=== PATIENT | male | born 1995 | race Caucasian/White ===

== ENCOUNTER → 2025-02-15 07:27 | Outpatient (BNVA) | payer SELFPAY | PROVIDERS: Visit Provider Internal Medicine ==

== ENCOUNTER 2025-07-12 16:04 | Outpatient (AMB) | payer OTHER, SELFPAY ==
--- NOTE | 2025-07-12 16:06 | MHC.OFFWIV ---
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 - The rash is itchy, marques, and becomes painful to touch as it progresses. - The patient reports a similar episode of rash a year ago while in [place], which resolved after a month with treatment. - The rash is characterized by red dots and bumps, which are skin-colored on the palms and red on the arms. - Previous treatment included prednisone and anti-itch cream, which provided relief over a month. - The patient is currently in the [employer] and has not experienced any fever or systemic symptoms. Physical Exam General: Cooperative, healthy appearing, comfortable, no acute distress and well developed Orientation: Patient oriented x3 Limitations: No limitations Head: Normal to inspection Ears: Hearing grossly normal bilaterally Nose: Normal External nose present Face and sinus: Normal facial exam Eyes: Appearance normal, both eyes and all related structures Neck: Normal visual inspection and Yes full ROM Respiratory: Normal respiratory effort and able to speak in complete sentences. Skin: small flesh colored bumps on the palms of the hands, these bumps turn erythematous as it hits the arms and go all the way up the arms, a little bit on the belly, behind the knees, and a little bit up on the thigh. Neuro: Patient oriented x3 Review of Systems Const All systems reviewed & are unremarkable except as noted in HPI and below Physical Exam Vital Signs: Last Vital Signs Temp 98.0 F 07/12/25 16:07 Pulse 71 07/12/25 16:07 BP 114/60 07/12/25 16:07 Pulse Ox 97 07/12/25 16:07 Oxygen Delivery Method Room Air 07/12/25 16:07 BMI result Body Mass Index 25.4 Assessment & Plan Assessment & Plan (1) Dyshidrotic eczema: Code(s): L30.1 - Dyshidrosis [pompholyx] Plan: Patient was informed and verbally consented to the use of an ambient scribe for clinic note documentation during this visit. Dyshidrotic Eczema - The patient will be prescribed a prednisone taper starting at 40 mg for three days, reducing by 10 mg every three days until completion, for 12 days. - Triamcinolone cream will be provided for topical application twice daily for up to two weeks for symptomatic relief. - The patient is advised to follow up with a non destructive testing engineer for further evaluation and confirmation of the diagnosis. Medications: New prednisone see taper instructions; 40 mg Daily x3 days, 30 mg daily x3 days, 20 mg daily x3 days, 10 mg daily x3 days 10 mg PO DIRECTED 30 tabs 0RF triamcinolone acetonide 0.5% do not exceed use greater than 14 days 1 appl topical BID 15 grams 0RF Coding Level of Care Code New Pt Level 3 (91392) Diagnoses Dyshidrotic eczema L30.1
[2025-07-12 16:07] VITALS: BP 114/60; PULSE 71; TEMP 36.7; O2SAT 97; BMI 25.4
--- OUTSIDE RECORDS SUMMARY | 2025-07-12 17:48 | XMS_ITS | Continuity of Care Document ---
Author Name [facility] Organization [facility] Care Team Providers Care Unit Technician Name Role Phone [facility] Unavailable Unavailable Problems Combined list of problems from Department of Defense and Veterans Affairs facilities. It does not include entries that were removed or entered in error. Problem Status Onset Date Problem Type Date of Resolution Comments Source EXAM, OCCUPATIONAL, GROUP HOME OR SEPARATION FROM LinQMartED SERVICE, LONG Active 10/21/20 Diagnosis 0108A-JAY hodge Encounter for screening examination for other mental health and behavioral disorders Active 10/20/20 Diagnosis 0108A-JAY hodge Anger Active Condition [facility] Decreased sexual function Active Condition [facility] Exposure to potentially hazardous substance ([facility] [id number]) Active Condition Dec 05, 2024 Entered By: SHARONDA DOVE Comment: Entered automatically through DERIC Problem List documentation program [facility] History of deployment Active Condition [facility] visit for: services physical accession Active Condition DoD Need For Vaccination Against Influenza Inactive Condition DoD Need For Vaccination Against Viral Diseases Inactive Condition DoD visit for: services physical Active Condition DoD Diagnosis: ICD-10-CM F41.9 Anxiety disorder, unspecified Active Diagnosis [facility] Diagnosis: ICD-10-CM Z56.0 Unemployment, unspecified Active Diagnosis [facility] Diagnosis: ICD-10-CM R37 Sexual dysfunction, unspecified Active Diagnosis [facility] Medications Combined list of outpatient medications from Department of Defense and Veterans Affairs facilities.Medications provided include 1) outpatient medications from the last 15 months, and 2) patient-reported medications. Medication Details Route Status Patient Instructions Prescription Expires Prescription Number Last Dispense Date Ordering Provider Order Date Order Qty Source No Known Medications No Known Medicati ons complet ed 0108A-A [facility] Nahun Malave PSYLLIUM PWDR,ORAL TAKE 2 TEASPOON FULS BY MOUTH ONCE DAILY FOR CONSTIPA TION (MIX WITH AT LEAST 8OZ. OF WATER OR OTHER FLUID) ORAL ACTIVE 12/01/2025 [id number] NAHUN WILKERSON 2024 390 [facility] Allergies, Adverse Reactions, Alerts Combined list of allergies from Department of Defense and Veterans Affairs facilities. It does not include entries that were removed or entered in error. Substance Category Reaction Severity Reaction type Status Date Reported Comments Source No Known Allergies Drug allergy (disorder) active 05/30/2014 Kvng MCDONOUGH[place] Immunizations Combined list of available immunizations from the Department of Defense and Veterans Affairs facilities. Immunization Series Date Given Administered By Site Reaction Lot Number CVX Code Drug Insurance Territory Manager Status Comments Source tetanus, diphtheria, acellular pertu is 2023 LEONOR Shoul kevin, left (delt oid) [id number] GlaxDreamFace InteractiveKli ak complet ed tetanus, diphtheri a, acellular pertussis 10/20/24 Given 0108A-A Nahun Malave INFLUENZA, UNSPECIFIED FORMULATION 2023 88 complet ed HISTORICA L INFORMATI ON - FROM PATIENT'S RECALL, per statement from vet [facility] anthrax vaccine 2023 MAYTELUNA-CAM POS Shoul kevin, right (delt oid) [id number] Kuapay. complet ed anthrax vaccine 12/09/23 Given 0108A-A Nahun Malave typhoid Vi capsular polysaccharid e vac 2023 [id number] OTI [employer]ent[employer] complet ed typhoid Vi capsular polysacch aride vac 11/13/23 Given Ambulat ory Pharmac y Influenza, trivlanent, adjuvanted, pf 2022 [id number] Seqirus complet ed Influenza , trivlanen t, adjuvante d, pf 10/12/23 Given Ambulat ory Pharmac y influenza, injectable, quadrivalent- pf 2021 [id number] ID Biomedical comple t ed influenza , injectabl e, quadrival ent-pf 08/23/22 Given Ambulat ory Pharmac y COVID Vaccine Pfizer 2020 208 PFIZER complet ed COVID Vaccine Pfizer 05/26/21 Given Ambulat ory Pharmac y COVID-19, mRNA, LNP-S, PF, 30 mcg/0.3 mL dose 2020 MURPHY, [facility] (PFR) Not Given COVID-19, mRNA, LNP-S, PF, 30 mcg/0.3 mL dose DoD COVID Vaccine Pfizer 2020 208 PFIZER complet ed COVID Vaccine Pfizer 05/04/21 Given Ambulat ory Pharmac y COVID-19, mRNA, LNP-S, PF, 30 mcg/0.3 mL dose 2020 FRANKEL, [facility] (PFR) Not Given COVID-19, mRNA, LNP-S, PF, 30 mcg/0.3 mL dose DoD influenza, injectable, quadrivalent- pf 2018 [id number] Seqirus complet ed influenza , injectabl e, quadrival ent-pf 09/24/19 Given Ambulat ory Pharmac y INFLUENZA, SEASONAL, INJECTABLE 2018 141 complet ed Drill weekend [facility] influenza, injectable, quadrivalent- pf 2017 [id number] 150 Unknown complet ed influenza , injectabl e, quadrival ent-pf 08/28/18 Given Ambulat ory Pharmac y INFLUENZA, SEASONAL, INJECTABLE 2016 141 complet ed [facility] influenza, injectable, quadrivalent- pf 2016 [id number] 150 Seqirus complet ed influenza , injectabl e, quadrival ent-pf 09/06/17 Given Ambulat ory Pharmac y Influenza, injectable, quadrivalent, preservative free 1 2016 [id number] 150 Seqirus (SEQ) comple t ed Influenza , injectabl e, quadrival ent, preservat will free DoD typhoid Vi capsular polysaccharid e vac 2016 [id number] 101 sanofi pasteur complet ed typhoid Vi capsular polysacch aride vac 02/03/17 Given Ambulat ory Pharmac y anthrax vaccine 2016 [id number] 24 Emergent Biosolutions complet ed anthrax vaccine 02/03/17 Given Ambulat ory Pharmac y anthrax vaccine 1 2016 [id number] 24 Emergent BioDefense Operations Humphrey ([facility]) complet ed anthrax vaccine DoD typhoid Vi capsular polysaccharid e vaccine 1 2016 [id number] 101 Sanofi Pasteur (PMC) complet ed typhoid Vi capsular polysacch aride vaccine DoD hepatitis A adult vaccine 2016 [id number] 52 Unknown complet ed hepatitis A adult vaccine 11/14/16 Given Ambulat ory Pharmac y hepatitis A vaccine, adult dosage 3 2016 [id number] 52 Other (OTH) complet ed hepatitis A vaccine, adult dosage DoD influenza, seasonal, injectable-pf 2015 [id number] 140 Unknown complet ed influenza , seasonal, injectabl e-pf 08/29/16 Given Ambulat ory Pharmac y Influenza, seasonal, injectable, preservative free 1 2015 [id number] 140 Other (OTH) complet ed Influenza , seasonal, injectabl e, preservat will free DoD hepatitis A adult vaccine 2015 [id number] 52 GlaxoSmithKli ne complet ed hepatitis A adult vaccine 04/12/16 Given Ambulat ory Pharmac y hepatitis A vaccine, adult dosage 2 2015 [id number] ffk environment (SKB) complet ed hepatitis A vaccine, adult dosage DoD varicella virus vaccine 2015 [id number] 21 Merck & Company Inc complet ed varicella virus vaccine 01/08/16 Given Ambulat ory Pharmac y varicella virus vaccine 2 2015 [id number] 21 Merck (MSD) complet ed varicella virus vaccine DoD hepatitis B vaccine, adult dosage 1 2015 UNK 43 Unknown (UNK) Not Given hepatitis B vaccine, adult dosage DoD influenza, seasonal, injectable-pf 2014 [id number] 140 Unknown complet ed influenza , seasonal, injectabl e-pf 10/21/15 Given Ambulat ory Pharmac y Influenza, seasonal, injectable, preservative free 1 2014 [id number] 140 Other (OTH) complet ed Influenza , seasonal, injectabl e, preservat will free DoD hepatitis A-hepatitis B vaccine 2013 [id number] 104 GlaxoSmithKli ne complet ed hepatitis A-hepatit is B vaccine 04/28/14 Given Ambulat ory Pharmac y adenovirus vaccine, live 2013 [id number] 143 Teva Pharmaceutica complet ed adenoviru s vaccine, live 04/28/14 Given Ambulat ory Pharmac y varicella virus vaccine 2013 [id number] 21 Merck & Company Inc complet ed varicella virus vaccine 04/28/14 Given Ambulat ory Pharmac y influenza, seasonal, injectable-pf 2013 [id number] 140 CSL Behring complet ed influenza , seasonal, injectabl e-pf 04/28/14 Given Ambulat ory Pharmac y measles, mumps and rubella virus vaccine 1 2013 UNK 03 Unknown (UNK) Not Given measles, mumps and rubella virus vaccine DoD varicella virus vaccine 1 2013 [id number] 21 Merck (MSD) complet ed varicella virus vaccine DoD hepatitis A and hepatitis B vaccine 1 2013 [id number] [facility] ffk environment (SKB) complet ed hepatitis A and hepatitis B vaccine DoD Influenza, seasonal, injectable, preservative free 1 2013 [id number] 140 CSL Biotherapies[employer] Inc. (CSL) complet ed Influenza , seasonal, injectabl e, preservat will free DoD Adenovirus, type 4 and type 7, live, oral 1 2013 [id number] 143 [facility] ([facility]) complet ed Adenoviru s, type 4 and type 7, live, oral DoD tetanus, diphtheria, acellular pertu is 2013 [id number] 115 sanofi pasteur complet ed tetanus, diphtheri a, acellular pertussis 04/26/14 Given Ambulat ory Pharmac y poliovirus vaccine, inactivated 2013 [id number] 10 sanofi pasteur complet ed polioviru s vaccine, inactivat ed 04/26/14 Given Ambulat ory Pharmac y meningococcal A,C,Y,W-135 (MCV4P) 2013 [id number] 114 GlaxDreamFace InteractiveKli ak complet ed meningoco ccal A,C,Y,W-1 35 (MCV4P) 04/26/14 Given Ambulat ory Pharmac y poliovirus vaccine, inactivated 1 2013 [id number] 10 Sanofi Pasteur (PMC) complet ed polioviru s vaccine, inactivat ed DoD meningococcal polysaccharid e (groups A, C, Y and W-135) diphtheria toxoid conjugate vaccine (MCV4P) 1 2013 [id number] 114 SmithKline (SKB) complet ed meningoco ccal polysacch aride (groups A, C, Y and W-135) diphtheri a toxoid conjugate vaccine (MCV4P) DoD tetanus toxoid, reduced diphtheria toxoid, and acellular pertu is vaccine, adsorbed 1 2013 [id number] 115 Sanofi Pasteur (PMC) complet ed tetanus toxoid, reduced diphtheri a toxoid, and acellular pertussis vaccine, adsorbed DoD Results Combined list of recent chemistry, hematology and other laboratory results from Department of Defense and Veterans Affairs, ranging from 15 months to all on record, depending upon the facility. Order Name Results Value Reference Range Date Interpretation Specimen Comments Source HEPATITI S B SURFACE ANTIBODY (HBsAb)- HEPATITIS B VIRUS SURFACE AB [PRESENCE] IN SERUM BY IMMUNOASSA Y Non Reactive 01/25 Specimen Type: SERUM No comment entered. Ordering Provider: LAUREL WILKERSON Report Released Date/Time: Nov 21, 2024 01:05 PM Reporting Lab: [facility] [address] [facility] [facility] [address] Performing Lab: [address] [address] [facility] CBC LEUKOCYTES [#/VOLUME] IN BLOOD BY AUTOMATED COUNT 5.74 10*3/uL 4.50 - 11.00 01/25 Specimen Type: BLOOD No comment entered. Ordering Provider: LAUREL WILKERSON Report Released Date/Time: Nov 21, 2024 01:05 PM Reporting Lab: [facility] [address] [facility] [facility] [address] Performing Lab: [facility] [address] [facility] [facility] [address] [facility] CBC ERYTHROCYT ES [#/VOLUME] IN BLOOD BY AUTOMATED COUNT 5.51 10*6/uL 4.23 - 5.66 01/25 Specimen Type: BLOOD No comment entered. Ordering Provider: LAUREL WILKERSON Report Released Date/Time: Nov 21, 2024 01:05 PM Reporting Lab: [facility] [address] [facility] [facility] [address] Performing Lab: [facility] [address] [facility] [facility] [address] [facility] CBC HEMOGLOBIN [MASS/VOLU ME] IN BLOOD 16.3 g/dL 12.8 - 17 01/25 Specimen Type: BLOOD No comment entered. Ordering Provider: LAUREL WILKERSON Report Released Date/Time: Nov 21, 2024 01:05 PM Reporting Lab: [facility] [address] [facility] [address] Performing Lab: [facility] [address] [facility] [address] [facility] CBC HEMATOCRIT [VOLUME FRACTION] OF BLOOD BY AUTOMATED COUNT 46.7 39.2 - 50.4 01/25 Specimen Type: BLOOD No comment entered. Ordering Provider: LAUREL WILKERSON Report Released Date/Time: Nov 21, 2024 01:05 PM Reporting Lab: [facility] [address] [facility] [address] Performing Lab: [facility] [address] [facility] [address] [facility] CBC MCV [ENTITIC VOLUME] BY AUTOMATED COUNT 84.8 fL 82 - 99 01/25 Specimen Type: BLOOD No comment entered. Ordering Provider: LAUREL WILKERSON Report Released Date/Time: Nov 21, 2024 01:05 PM Reporting Lab: [facility] [address] [facility] [facility] [address] Performing Lab: [facility] [address] [facility] [facility] [address] [facility] CBC MCHC [MASS/VOLU ME] BY AUTOMATED COUNT 34.9 g/dL 30.8 - 35.1 01/25 Specimen Type: BLOOD No comment entered. Ordering Provider: LAUREL WILKERSON Report Released Date/Time: Nov 21, 2024 01:05 PM Reporting Lab: [facility] [address] [facility] [facility] [address] Performing Lab: [facility] [address] [facility] [facility] [address] [facility] CBC PLATELETS [#/VOLUME] IN BLOOD BY AUTOMATED COUNT 212 10*3/uL 140 - 360 01/25 Specimen Type: BLOOD No comment entered. Ordering Provider: LAUREL WILKERSON Report Released Date/Time: Nov 21, 2024 01:05 PM Reporting Lab: [facility] [address] [facility] [facility] [address] Performing Lab: [facility] [address] [facility] [address] [facility] CBC ERYTHROCYT E DISTRIBUTI ON WIDTH [RATIO] BY AUTOMATED COUNT 13.1 12.0 - 16.0 01/25 Specimen Type: BLOOD No comment entered. Ordering Provider: LAUREL WILKERSON Report Released Date/Time: Nov 21, 2024 01:05 PM Reporting Lab: [facility] [address] [facility] [address] Performing Lab: [facility] [address] [facility] [address] [facility] CBC MCH [ENTITIC MASS] BY AUTOMATED COUNT 29.6 pg 26.2 - 32.6 01/25 Specimen Type: BLOOD No comment entered. Ordering Provider: LAUREL WILKERSON Report Released Date/Time: Nov 21, 2024 01:05 PM Reporting Lab: [facility] [address] [facility] [address] Performing Lab: [facility] [address] [address] [facility] BASIC METABOLI C PANEL (non-fas ting) UREA NITROGEN [MASS/VOLU ME] IN SERUM OR PLASMA 18 mg/dL 7 - 25 01/25 Specimen Type: SERUM No comment entered. Ordering Provider: LAUREL WILKERSON Report Released Date/Time: Nov 21, 2024 01:05 PM Reporting Lab: [facility] [address] [address] Performing Lab: [facility] [address] [address] [facility] BASIC METABOLI C PANEL (non-fas ting) GLUCOSE [MASS/VOLU ME] IN SERUM OR PLASMA 84 mg/dL 65 - 100 01/25 Specimen Type: SERUM No comment entered. Ordering Provider: LAUREL WILKERSON Report Released Date/Time: Nov 21, 2024 01:05 PM Reporting Lab: [address] [address] Performing Lab: [address] [address] [facility] BASIC METABOLI C PANEL (non-fas ting) SODIUM [MOLES/VOL UME] IN SERUM OR PLASMA 138 mmol/L 135 - 145 01/25 Specimen Type: SERUM No comment entered. Ordering Provider: LAUREL WILKERSON Report Released Date/Time: Nov 21, 2024 01:05 PM Reporting Lab: [address] [address] Performing Lab: [facility] [address] [address] [facility] BASIC METABOLI C PANEL (non-fas ting) POTASSIUM [MOLES/VOL UME] IN SERUM OR PLASMA 4.3 mmol/L 3.5 - 5.0 01/25 Specimen Type: SERUM No comment entered. Ordering Provider: LAUREL WILKERSON Report Released Date/Time: Nov 21, 2024 01:05 PM Reporting Lab: [facility] [address] Performing Lab: [facility] [facility] [address] [facility] [facility] [address] [facility] WSTRN MASSUSE [facility] BASIC METABOLI C PANEL (non-fas ting) CHLORIDE [MOLES/VOL UME] IN SERUM OR PLASMA 103 mmol/L 100 - 110 01/25 Specimen Type: SERUM No comment entered. Ordering Provider: LAUREL WILKERSON Report Released Date/Time: Nov 21, 2024 01:05 PM Reporting Lab: [facility] [place] [facility] [address] [facility] [facility] [address] Performing Lab: [facility] WSTRN [facility] [address] [facility]PITALRSOU[facility]ENTERTRN [facility]ITALUSE [facility] BASIC METABOLI C PANEL (non-fas ting) CARBON DIOXIDE, TOTAL [MOLES/VOL UME] IN SERUM OR PLASMA 27 meq/L 20 - 30 01/25 Specimen Type: SERUM No comment entered. Ordering Provider: LAUREL WILKERSON Report Released Date/Time: Nov 21, 2024 01:05 PM Reporting Lab: [facility]ITALRL TRN [facility]ITALUSETS [address] [address] Performing Lab: [facility]ITALRL TRN [facility]ITALUSE[address] [address] [facility]ITALRINF[facility] WESTN [facility] BASIC METABOLI C PANEL (non-fas ting) CALCIUM [MASS/VOLU ME] IN SERUM OR PLASMA 10.4 mg/dL 8.5 - 10.2 01/25 H Specimen Type: SERUM No comment entered. Ordering Provider: LAUREL WILKERSON Report Released Date/Time: Nov 21, 2024 01:05 PM Reporting Lab: [facility] WSTRN [facility]ITALUSETS [address] [address] Performing Lab: [facility]ITALRL WSTRN [facility]ITALUSETS [address] [address] [facility]ITALRSOU[facility] CENTERTRN [facility] HOS[facility]ITALUSE [facility] BASIC METABOLI C PANEL (non-fas ting) CREATININE [MASS/VOLU ME] IN SERUM OR PLASMA 0.87 mg/dL 0.50 - 1.40 01/25 Specimen Type: SERUM No comment entered. Ordering Provider: LAUREL WILKERSON Report Released Date/Time: Nov 21, 2024 01:05 PM Reporting Lab: [facility]ITALRL TRN [facility]USE[address] [address] Performing Lab: [facility]OSPITALRL [facility]N [facility]ITALUSE[address] [address] [facility]ITALRL [facility]N [facility] HOS[facility]ITALUSE [facility] BASIC METABOLI C PANEL (non-fas ting) GLOMERULAR FILTRATION RATE/1.73 SQ M.PREDICTE D [VOLUME RATE/AREA] IN SERUM, PLASMA OR BLOOD BY CREATININE -BASED FORMULA (CKD-EPI 2020) >90mL/mi n 60 01/25 Specimen Type: SERUM No comment entered. Ordering Provider: LAUREL WILKERSON Report Released Date/Time: Nov 21, 2024 01:05 PM Reporting Lab: [facility]ITAL[facility]N [address] [address] Performing Lab: [facility]OSPITALRL [facility]ITALN [facility]ITALUSE[address] [address] [facility] LIPID PANEL, NON FASTING CHOLESTERO L [MASS/VOLU ME] IN SERUM OR PLASMA 220 mg/dL 01/25 H Specimen Type: SERUM No comment entered. Ordering Provider: LAUREL WILKERSON Report Released Date/Time: Nov 21, 2024 01:05 PM Reporting Lab: [facility]ITALRL TRN [facility]ITALUSE[address] [address] Performing Lab: [facility]ITALRL TRN [facility]ITALUSE[address] [address] [facility]ITALRINFIRMARY WESTN [facility] HOSPITALUSE [facility] LIPID PANEL, NON FASTING TRIGLYCERI DE [MASS/VOLU ME] IN SERUM OR PLASMA 142 mg/dL 0 - 150 01/25 Specimen Type: SERUM No comment entered. Ordering Provider: LAUREL WILKERSON Report Released Date/Time: Nov 21, 2024 01:05 PM Reporting Lab: [facility]ITALRSOU[facility]DW[facility] CENTERTRN [facility]ITALUSE[address] [address] Performing Lab: [facility] [place] [facility] [address] [facility] [facility] [address] [facility] [facility] LIPID PANEL, NON FASTING CHOLESTERO L IN LDL [MASS/VOLU ME] IN SERUM OR PLASMA BY CALCULALEON Beckwith 140 mg/dL 0 - 129 01/25 H Specimen Type: SERUM No comment entered. Ordering Provider: LAUREL WILKERSON Report Released Date/Time: Nov 21, 2024 01:05 PM Reporting Lab: [facility] [place] [facility] [address] [facility] [address] Performing Lab: [facility] [facility] [address] [facility] [facility] [address] [facility] LIPID PANEL, NON FASTING CHOLESTERO L.TOTAL/CH OLESTEROL IN HDL [MASS RATIO] IN SERUM OR PLASMA 4.2 01/25 Specimen Type: SERUM No comment entered. Ordering Provider: LAUREL WILKERSON Report Released Date/Time: Nov 21, 2024 01:05 PM Reporting Lab: [facility] [place] [facility] [address] [facility] [address] Performing Lab: [place] [facility] [facility] [address] [facility] [facility] [address] [facility] LIPID PANEL, NON FASTING CHOLESTERO L IN HDL [MASS/VOLU ME] IN SERUM OR PLASMA 52 mg/dL 40 - 60 01/25 Specimen Type: SERUM No comment entered. Ordering Provider: LAUREL WILKERSON Report Released Date/Time: Nov 21, 2024 01:05 PM Reporting Lab: [facility] [place] [facility] [address] [facility] [facility] [address] Performing Lab: [facility] [place] [facility] [address] [facility] [facility] [address] [facility]ITALRL WSTRN [place] [facility] LIVER FUNCTION PROTEIN [MASS/VOLU ME] IN SERUM OR PLASMA 7.8 g/dL 6.0 - 8.3 01/25 Specimen Type: SERUM No comment entered. Ordering Provider: LAUREL WILKERSON Report Released Date/Time: Nov 21, 2024 01:05 PM Reporting Lab: [facility] [address] [facility] [address] Performing Lab: [facility] [address] [facility] [address] [facility] [place] [facility] LIVER FUNCTION ALBUMIN [MASS/VOLU ME] IN SERUM OR PLASMA 4.6 g/dL 3.5 - 5.0 01/25 Specimen Type: SERUM No comment entered. Ordering Provider: LAUREL WILKERSON Report Released Date/Time: Nov 21, 2024 01:05 PM Reporting Lab: [facility] [address] [facility] [address] Performing Lab: [facility] [address] [facility] [address] [place] [facility] [place] [facility] LIVER FUNCTION ALKALINE PHOSPHATAS E [ENZYMATIC ACTIVITY/V OLUME] IN SERUM OR PLASMA 51 U/L 40 - 150 01/25 Specimen Type: SERUM No comment entered. Ordering Provider: LAUREL WILKERSON Report Released Date/Time: Nov 21, 2024 01:05 PM Reporting Lab: [facility] [address] [facility] [address] Performing Lab: [facility] [place] [facility] [address] [facility] [address] [place] [facility] [facility] LIVER FUNCTION ASPARTATE AMINOTRANS FERASE [ENZYMATIC ACTIVITY/V OLUME] IN SERUM OR PLASMA 27 U/L 5 - 34 01/25 Specimen Type: SERUM No comment entered. Ordering Provider: LAUREL WILKERSON Report Released Date/Time: Nov 21, 2024 01:05 PM Reporting Lab: [facility] [place] [facility] [address] [facility] [address] Performing Lab: [facility] [place] [facility] [address] [facility] [address] [facility] [place] [facility] LIVER FUNCTION ALANINE AMINOTRANS FERASE [ENZYMATIC ACTIVITY/V OLUME] IN SERUM OR PLASMA 38 U/L 03/19 /2025 Specimen Type: SERUM No comment entered. Ordering Provider: LAUREL WILKERSON Report Released Date/Time: Nov 21, 2024 01:05 PM Reporting Lab: [address] [address] Performing Lab: [address] [address] [facility] LIVER FUNCTION BILIRUBIN. TOTAL [MASS/VOLU ME] IN SERUM OR PLASMA 0.6 mg/dL 0.2 - 1.2 01/25 Specimen Type: SERUM No comment entered. Ordering Provider: LAUREL WILKERSON Report Released Date/Time: Nov 21, 2024 01:05 PM Reporting Lab: [address] [address] Performing Lab: [address] [address] [facility] HEMOGLOB IN A1C PANEL HEMOGLOBIN A1C/HEMOGL OBIN.TOTAL IN BLOOD BY HPLC 5.1 4.0 - 5.6 01/25 Specimen Type: BLOOD Comment: Values obtained from A1C measurement s can vary. For atypical A1C assays, a reported value of 7.0 could actually be between 6.72 and 7.28 if measured by a reference method. A reported value of 9.0 could actually be between 8.73 and 9.27. Ref: http://www. ngsp.org/[place] Pdata.asp Ordering Provider: LAUREL WILKERSON Report Released Date/Time: Nov 21, 2024 01:05 PM Reporting Lab: [address] [address] Performing Lab: [address] [address] [facility] MICROALB UMIN CREATINI NE RATIO PANEL MICROALBUM IN/CREATIN INE [MASS RATIO] IN URINE cancmg/g 0 - 29.9 03/19 /2025 Specimen Type: URINE No comment entered. Ordering Provider: LAUREL WILKERSON Report Released Date/Time: Nov 21, 2024 01:05 PM Reporting Lab: [facility] [place] [facility] [address] [facility] [address] Performing Lab: [facility] [place] [facility] [address] [facility] [address] [facility] [place] [facility] MICROALB UMIN CREATINI NE RATIO PANEL MICROALBUM IN [MASS/VOLU ME] IN URINE < 0.5mg/dL 01/25 Specimen Type: URINE No comment entered. Ordering Provider: LAUREL WILKERSON Report Released Date/Time: Nov 21, 2024 01:05 PM Reporting Lab: [facility] [place] [facility] [address] [facility] [address] Performing Lab: [facility] [place] [facility] [address] [facility] [address] [place] [facility] [place] [facility] MICROALB UMIN CREATINI NE RATIO PANEL CREATININE [MASS/VOLU ME] IN URINE 89.44 mg/dL 01/25 Specimen Type: URINE No comment entered. Ordering Provider: LAUREL WILKERSON Report Released Date/Time: Nov 21, 2024 01:05 PM Reporting Lab: [facility] [place] [address] [address] Performing Lab: [facility] [place] [address] [address] [place] [facility] [place] [facility] URINALYS IS CLEAN CATCH COLOR OF URINE Light-Ye llow 01/25 Specimen Type: URINE Comment: If Glucose = >500 and Ketones are positive, please alert the Physician. Ordering Provider: LAUREL WILKERSON Report Released Date/Time: Nov 21, 2024 01:05 PM Reporting Lab: [facility] [place] [facility] [address] [facility] [address] Performing Lab: [facility] [place] [address] [address] [facility] [place] [facility] URINALYS IS CLEAN CATCH APPEARANCE OF URINE Clear 01/25 Specimen Type: URINE Comment: If Glucose = >500 and Ketones are positive, please alert the Physician. Ordering Provider: LAUREL WILKERSON Report Released Date/Time: Nov 21, 2024 01:05 PM Reporting Lab: [facility] [place] [address] [address] Performing Lab: [facility] [place] [facility] [address] [facility] [address] [facility] [place] [facility] URINALYS IS CLEAN CATCH GLUCOSE [MASS/VOLU ME] IN URINE Normalmg /dL 01/25 Specimen Type: URINE Comment: If Glucose = >500 and Ketones are positive, please alert the Physician. Ordering Provider: LAUREL WILKERSON Report Released Date/Time: Nov 21, 2024 01:05 PM Reporting Lab: [facility] [place] [address] [address] Performing Lab: [facility] [place] [facility] [address] [facility] [address] [facility] [place] [facility] URINALYS IS CLEAN CATCH KETONES [MASS/VOLU ME] IN URINE BY TEST STRIP NEGATIVE mg/dL 01/25 Specimen Type: URINE Comment: If Glucose = >500 and Ketones are positive, please alert the Physician. Ordering Provider: LAUREL WILKERSON Report Released Date/Time: Nov 21, 2024 01:05 PM Reporting Lab: [facility] [place] [address] [address] Performing Lab: [facility] [place] [address] [address] [facility] [place] [facility] URINALYS IS CLEAN CATCH ERYTHROCYT ES [PRESENCE] IN URINE SEDIMENT BY LIGHT MICROSCOPY NEGATIVE mg/dL 01/25 Specimen Type: URINE Comment: If Glucose = >500 and Ketones are positive, please alert the Physician. Ordering Provider: LAUREL WILKERSON Report Released Date/Time: Nov 21, 2024 01:05 PM Reporting Lab: [facility] [place] [facility] [address] [facility] [address] Performing Lab: [facility] [place] [facility] [address] [facility] [address] [facility] [place] [facility] URINALYS IS CLEAN CATCH PROTEIN [MASS/VOLU ME] IN URINE BY TEST STRIP NEGATIVE mg/dL 01/25 Specimen Type: URINE Comment: If Glucose = >500 and Ketones are positive, please alert the Physician. Ordering Provider: LAUREL WILKERSON Report Released Date/Time: Nov 21, 2024 01:05 PM Reporting Lab: [facility] [place] [facility] [address] [facility] [address] Performing Lab: [facility] [place] [facility] [address] [facility] [address] [facility] [place] [facility] URINALYS IS CLEAN CATCH NITRITE [PRESENCE] IN URINE NEGATIVE mg/dL 01/25 Specimen Type: URINE Comment: If Glucose = >500 and Ketones are positive, please alert the Physician. Ordering Provider: LAUREL WILKERSON Report Released Date/Time: Nov 21, 2024 01:05 PM Reporting Lab: [facility] [place] [facility] [address] [facility] [address] Performing Lab: [facility] [place] [facility] [address] [facility] [address] [facility] [place] [facility] URINALYS IS CLEAN CATCH BILIRUBIN. TOTAL [PRESENCE] IN URINE NEGATIVE mg/dL 01/25 Specimen Type: URINE Comment: If Glucose = >500 and Ketones are positive, please alert the Physician. Ordering Provider: LAUREL WILKERSON Report Released Date/Time: Nov 21, 2024 01:05 PM Reporting Lab: [facility] [place] [facility] [address] [facility] [address] Performing Lab: [facility] [place] [facility] [address] [facility] [address] [facility] [place] [facility] URINALYS IS CLEAN CATCH SPECIFIC GRAVITY OF URINE BY REFRACTOME TRY 1.018 1.016 - 1.022 01/25 Specimen Type: URINE Comment: If Glucose = >500 and Ketones are positive, please alert the Physician. Ordering Provider: LAUREL WILKERSON Report Released Date/Time: Nov 21, 2024 01:05 PM Reporting Lab: [facility] [address] Performing Lab: [facility] [address] [facility] URINALYS IS CLEAN CATCH PH OF URINE BY TEST STRIP 7.0 5.0 - 9.0 01/25 Specimen Type: URINE Comment: If Glucose = >500 and Ketones are positive, please alert the Physician. Ordering Provider: LAUREL WILKERSON Report Released Date/Time: Nov 21, 2024 01:05 PM Reporting Lab: [facility] [address] Performing Lab: [facility]N [facility] [address] [facility]ITALUSE [facility] URINALYS IS CLEAN CATCH UROBILINOG EN [MASS/VOLU ME] IN URINE BY TEST STRIP Normalmg /dL <2.0 - 2.0 01/25 Specimen Type: URINE Comment: If Glucose = >500 and Ketones are positive, please alert the Physician. Ordering Provider: LAUREL WILKERSON Report Released Date/Time: Nov 21, 2024 01:05 PM Reporting Lab: [facility] [place] [address] [address] Performing Lab: [facility]ITALUSE[address] [address] [facility]N [place] [facility] URINALYS IS CLEAN CATCH LEUKOCYTE ESTERASE [PRESENCE] IN URINE BY TEST STRIP NEGATIVE 01/25 Specimen Type: URINE Comment: If Glucose = >500 and Ketones are positive, please alert the Physician. Ordering Provider: LAUREL WILKERSON Report Released Date/Time: Nov 21, 2024 01:05 PM Reporting Lab: [address] [address] Performing Lab: [address] [address] [facility] T-SPOT TB PANEL MYCOBACTER IUM TUBERCULOS IS STIMULATED GAMMA INTERFERON [INTERPRET ATION] IN BLOOD QUALITATIV E Negative 01/25 Specimen Type: BLOOD Comment: A negative test result does not exclude the possibility of exposure to or infection with Mycobacteri um tuberculosi s (M. tuberculosi s). Patients with recent exposure to TB infected individuals exhibiting a negative T-SPOT.TB result should be considered for retesting within 6 weeks or if other relevant clinical symptoms indicate. Results from T-SPOT.TB testing must be used in conjunction with each individual' s epidemiolog ical history, current medical status, and results of other diagnostic evaluations . The T-SPOT.TB test is qualitative and results are reported as positive, borderline, or negative, given that the test controls perform as expected. In line with the Centers for Disease Control and Prevention' s 2010 recommendat ion to report quantitativ e measurement s alongside the qualitative result, the laboratory provides spot counts for information al purposes only. The T-SPOT.TB test should not be interpreted as a quantitativ e test. For additional information , please refer to http://educ [email or web address] .com/faq/FA Q215 (This link is being provided for information al/ educational purposes only.) Test Performed by [employer], [employer] [facility], [address] [place] [address] Jaime Harding M.D., Ph.D., Director of Laboratorie s , CLIA [id number] TEST PERFORMED AT: , Ordering Provider: LAUREL WILKERSON Report Released Date/Time: Jan 11, 2025 01:09 PM Reporting Lab: [facility] [address] [facility] [address] Performing Lab: [place] [id number] [address] [facility] T-SPOT TB PANEL MYCOBACTER IUM TUBERCULOS IS STIMULATED GAMMA INTERFERON ESAT-6 AG SPOT COUNT [#] IN BLOOD 0 01/25 Specimen Type: BLOOD Comment: A negative test result does not exclude the possibility of exposure to or infection with Mycobacteri um tuberculosi s (M. tuberculosi s). Patients with recent exposure to TB infected individuals exhibiting a negative T-SPOT.TB result should be considered for retesting within 6 weeks or if other relevant clinical symptoms indicate. Results from T-SPOT.TB testing must be used in conjunction with each individual' s epidemiolog ical history, current medical status, and results of other diagnostic evaluations . The T-SPOT.TB test is qualitative and results are reported as positive, borderline, or negative, given that the test controls perform as expected. In line with the Centers for Disease Control and Prevention' s 2010 recommendat ion to report quantitativ e measurement s alongside the qualitative result, the laboratory provides spot counts for information al purposes only. The T-SPOT.TB test should not be interpreted as a quantitativ e test. For additional information , please refer to http://educ [email or web address] .com/faq/FA Q215 (This link is being provided for information al/ educational purposes only.) Test Performed by [employer]John, [employer] [facility], [address] [place] [address] Jaime Harding M.D., Ph.D., Director of Laboratorie s , CLIA [id number] TEST PERFORMED AT: , Ordering Provider: LAUREL WILKERSON Report Released Date/Time: Jan 11, 2025 01:09 PM Reporting Lab: [facility] [address] [facility] [address] Performing Lab: [facility] [address] [address] [facility] T-SPOT TB PANEL MYCOBACTER IUM TUBERCULOS IS STIMULATED GAMMA INTERFERON CFP10 AG SPOT COUNT [#] IN BLOOD 0 01/25 Specimen Type: BLOOD Comment: A negative test result does not exclude the possibility of exposure to or infection with Mycobacteri um tuberculosi s (M. tuberculosi s). Patients with recent exposure to TB infected individuals exhibiting a negative T-SPOT.TB result should be considered for retesting within 6 weeks or if other relevant clinical symptoms indicate. Results from T-SPOT.TB testing must be used in conjunction with each individual' s epidemiolog ical history, current medical status, and results of other diagnostic evaluations . The T-SPOT.TB test is qualitative and results are reported as positive, borderline, or negative, given that the test controls perform as expected. In line with the Centers for Disease Control and Prevention' s 2010 recommendat ion to report quantitativ e measurement s alongside the qualitative result, the laboratory provides spot counts for information al purposes only. The T-SPOT.TB test should not be interpreted as a quantitativ e test. For additional information , please refer to http://educ [email or web address] .Symplified/faq/FA Q215 (This link is being provided for information al/ educational purposes only.) Test Performed by [employer], [employer] [facility], [address] [place] [address] Jaime Harding M.D., Ph.D., Director of Laboratorie s , [place] [id number] TEST PERFORMED AT: , Ordering Provider: LAUREL WILKERSON Report Released Date/Time: Jan 11, 2025 01:09 PM Reporting Lab: [facility] [address] [facility] [address] Performing Lab: [place] [id number] [address] [facility] T-SPOT TB PANEL MITOGEN STIMULATED GAMMA INTERFERON POSITIVE CONTROL SPOT COUNT [#] IN BLOOD Passed 01/25 Specimen Type: BLOOD Comment: A negative test result does not exclude the possibility of exposure to or infection with Mycobacteri um tuberculosi s (M. tuberculosi s). Patients with recent exposure to TB infected individuals exhibiting a negative T-SPOT.TB result should be considered for retesting within 6 weeks or if other relevant clinical symptoms indicate. Results from T-SPOT.TB testing must be used in conjunction with each individual' s epidemiolog ical history, current medical status, and results of other diagnostic evaluations . The T-SPOT.TB test is qualitative and results are reported as positive, borderline, or negative, given that the test controls perform as expected. In line with the Centers for Disease Control and Prevention' s 2010 recommendat ion to report quantitativ e measurement s alongside the qualitative result, the laboratory provides spot counts for information al purposes only. The T-SPOT.TB test should not be interpreted as a quantitativ e test. For additional information , please refer to http://educ ation.Dindong .Symplified/faq/FA Q215 (This link is being provided for information al/ educational purposes only.) Test Performed by [employer], [employer] [facility], [address] [place] [address] Jaime Harding M.D., Ph.D., Director of Laboratorie s , CLIA [id number] TEST PERFORMED AT: , Ordering Provider: LAUREL WILKERSON Report Released Date/Time: Jan 11, 2025 01:09 PM Reporting Lab: [facility] [address] [facility] [address] Performing Lab: [facility] [id number] [place] [address] T-SPOT TB PANEL GAMMA INTERFERON NEGATIVE CONTROL SPOT COUNT [#] IN BLOOD Passed 01/25 Specimen Type: BLOOD Comment: A negative test result does not exclude the possibility of exposure to or infection with Mycobacteri um tuberculosi s (M. tuberculosi s). Patients with recent exposure to TB infected individuals exhibiting a negative T-SPOT.TB result should be considered for retesting within 6 weeks or if other relevant clinical symptoms indicate. Results from T-SPOT.TB testing must be used in conjunction with each individual' s epidemiolog ical history, current medical status, and results of other diagnostic evaluations . The T-SPOT.TB test is qualitative and results are reported as positive, borderline, or negative, given that the test controls perform as expected. In line with the Centers for Disease Control and Prevention' s 2010 recommendat ion to report quantitativ e measurement s alongside the qualitative result, the laboratory provides spot counts for information al purposes only. The T-SPOT.TB test should not be interpreted as a quantitativ e test. For additional information , please refer to http://educ [email or web address] .Symplified/faq/FA Q215 (This link is being provided for information al/ educational purposes only.) Test Performed by [facility], [employer] [facility], [address] [place] [address] Jaime Harding M.D., Ph.D., Director of Laboratorie s , CLIA [id number] TEST PERFORMED AT: , Ordering Provider: LAUREL WILKERSON Report Released Date/Time: Jan 11, 2025 01:09 PM Reporting Lab: [facility] [address] [facility] [address] Performing Lab: [facility] [address] [address] [facility] Infect us Disease Source of Test.LC PostDepS torage ( 4 7:03 AM) 10/20 [facility] Nahun Wilson Infect us Disease HIV-1/2 AG/AB 4G CDD LC NEGATIVE NEGATIVE 10/20 Result Comment: Performed At: 1 [facility] [address] [place] [address] VALE MARYBETH PHD Ph:[phone] [facility] Nahun Wilson Vital Signs Combined list of inpatient and outpatient Vital Signs from Department of Defense and Veterans Affairs, ranging from 12 months to all on record, depending upon the facility. Vital Sign Value Date Comments Source Mean Arterial Pressure, Cuff (Calc) 99 mm[Hg] 10/21/2024 20:17:00 GRACE Abraham Systolic Blood Pressure 129 mm[Hg] 10/21/20 24 20:17:00 GRACE Abraham Diastolic Blood Pressure 84 mm[Hg] 024 20:17:00 0108A-[facility] Nahun Abraham Peripheral Pulse Rate 71 bpm 10/21/2024 20:17:00 0108A-[facility] Nahun Abraham Temperature Oral 36.8 Nabila 10/21/2024 20:17:00 0108A-[facility] Nahun Abraham Peripheral Pulse Rate 69 bpm 12/09/2023 13:13:00 0108A-[facility] Nahun Abraham Systolic Blood Pressure 120 mm[Hg] 12/09/19 24 13:13:00 0108A-[facility] Nahun Abraham Diastolic Blood Pressure 66 mm[Hg] 024 13:13:00 0108A-[facility] Nahun Abraham Temperature Temporal Artery 36.5 Nabila 12/09/2023 13:13:00 0108A-[facility] Nahun Abraham Systolic Blood Pressure 117 mm[Hg] 10/20/20 13:31:00 0108A-[facility] Nahun Abraham Diastolic Blood Pressure 80 mm[Hg] 024 13:31[facility] Temperature Temporal Artery 36.1 Nabila 10/20/2024 13:31:00 0108A-[facility] Nahun Abraham SYSTOLIC BLOOD PRESSURE 124 11/30/19 12:57:55 [facility] [place] [facility] DIASTOLIC BLOOD PRESSURE 75 025 12:57:55 [facility] [place] [facility] PULSE OXIMETRY 98 11/30/2024 12:57:55 [facility] [place] [facility] WEIGHT 133 11/30/2024 12:57:55 [facility] [place] [facility] BMI 24 kg/m2 11/30/2024 12:57:55 [facility] [place] [facility] PAIN 0 11/30/2024 12:57:55 [facility] [place] [facility] HEIGHT 62 11/30/2024 12:57:55 [facility] [place] [facility] TEMPERATURE 98.3 11/30/2024 12:57:55 [facility] [place] [facility] PULSE 61 11/30/2024 12:57:55 [facility] [place] [facility] RESPIRATION 20 11/30/2024 12:57:55 [facility] Encounters Combined list of: 1) Encounters from Department of Veterans Affairs facilities going backup to the last 18 months, not all [place] inpatient encounters are included; 2) Encounters from the Department of Defense facilities going backup to 280 months. Location Location Details Encounter Type Encounter Number Reason For Visit Attending Provider ADM Date DC Date Status Disposition Source [place] [place] [facility] [place] OUTPATIENT [id number] ELDER RUTLEDGE 04/26 Released w/o Limitations [place]([facility] ption Station Optomet ry) [place] [facility]) OUTPATIENT [id number] Notes Entered by: DAHLIA KING 27 Apr 2014 0819 ------- ------- ------- ------- -- HEARING TEST KATEY KING 04/27 Released w/o Limitations [place]jas [place]([facility] ) [place] OUTPATIENT [id number] Notes Entered by: Jb HORNER 28 Apr 2014 0640 ------- ------- ------- ------- -- DORIAN HAMILTON 04/28 Released w/o Limitations [place]jas [place]([facility] ption [facility] ) [place]jas [place]([facility]) OUTPATIENT [id number] Notes Entered by: Jb POPE 30 May 2014 0705 ------- ------- ------- ------- -- DERMHERNAN STUART 05/30 Released with Work/Duty Limitations [place]jas [place]([facility]) [place]jas [place]([facility]) OUTPATIENT [id number] Notes Entered by: BRETT MARIE 09 Jun 2014 0632 ------- ------- ------- ------- -- DERM infecte d blahsan s AUSTINRUBI MICHELWILLY Muhammad 06/09 Released with Work/Duty Limitations [place]) [place] ) OUTPATIENT [id number] LIIL OTEROANNErmelinda Rubin 11/07 Released w/o Limitations [place]([facility] ption Station Optomet ry) [place]([facility]) OUTPATIENT [id number] Notes Entered by: Chito VALDES 12 Nov 2015 1356 ------- ------- ------- ------- -- Hearing Test NAHUN VALDES 11/12 Released w/o Limitations [place]jas [place]([facility] ) [place] OUTPATIENT [id number] Notes Entered by: MILLICENT SINCLAIR RA 14 Nov 2015 0809 ------- ------- ------- ------- -- IMM DORIAN SANDY 11/14 Released w/o Limitations [place] ) [place]([facility]) OUTPATIENT [id number] Notes Entered by: JES PURCELL 08 Jan 2016 0837 ------- ------- ------- ------- -- IMM-DUONG MCRAE 01/07 Released w/o Limitations [place] [facility] [place] [place] OUTPATIENT [id number] DERM/ blister s left foot GHASSAN MARIN 01/24 Released with Work/Duty Limitations [facility] [place] OUTPATIENT [id number] Notes Entered by: DEVAN PERES 03 Feb 2017 0905 ------- ------- ------- ------- -- MYNOR LOCKHART 02/03 Released w/o Limitations [facility] [place] [place] OUTPATIENT [id number] Notes Entered by: CHOLO BRITT 22 Dec 2017 0802 ------- ------- ------- ------- -- CINDY CLOUD 12/22 Released w/o Limitations [facility] [place] [place] OUTPATIENT [id number] Notes Entered by: MARIANA BUTLER 22 Dec 2017 0756 ------- ------- ------- ------- -- GRISELDA GABRIEL 12/22 Released w/o Limitations [facility] [place] [place] [facility] [place] [facility] Outpatient Encounter [id number] 08/18 [place] [facility] [place] [facility] [id number] KELLEY FLORES 10/19 Discharge Disposition: Home or Self Care 0108C-A [facility] 0108A-[facility] Readiness [id number] EXAM, OCCUPAT IONAL, RETIREM ENT OR SEPARAT ION FROM [facility],En counter for screeni ng examina tion for other mental health and behavio ral disorde rs 10/20 Discharge Disposition: Released Without Limitations 0[facility] [place] [facility] Outpatient Encounter [id number] 11/14 [place] [facility] [place] [facility] [place] Outpatient Encounter [id number] 11/23 [facility] [place] [place] OFFICE O/P NEW MOD 45 MIN [id number] Diagnos is: ICD-10- CM R37 Sexual dysfunc tion, unspeci fied ROCK,Chito BOYERM J 11/30 [facility] Outpatient Encounter [id number] 11/30 [facility] [place] [facility] PH1 ASSMT&MGMT NQHP 11-20 [id number] Diagnos is: ICD-10- CM F41.9 Anxiety disorde r, unspeci ISHA Lombardi RTNEY R 11/30 [facility] PSYTX W PT 45 MINUTES [id number] Diagnos is: ICD-10- CM F41.9 Anxiety disorde r, unspeci ISHA Lombardi RTNEY R 12/07 [facility] PSYTX W PT 30 MINUTES [id number] Diagnos is: ICD-10- CM F41.9 Anxiety disorde r, unspeci fiISHA Guzman RTNEY R 12/21 [facility] PSYTX W PT 30 MINUTES [id number] Diagnos is: ICD-10- CM F41.9 Anxiety disorde r, unspeci ISHA Lombardi RTNEY R 01/11 [facility] PSYTX W PT 30 MINUTES [id number] Diagnos is: ICD-10- CM F41.9 Anxiety disorde r, unspeci fabian ELAINEISHA LOC R 01/25 [place] [facility] [place] [facility] [place] [facility] COMMUNITY/ WORK REINTEGRAT ION [id number] Diagnos is: ICD-10- CM Z56.0 Unemplo yment, unspeci fiSUNIL Gomez J 02/15 [place] [facility] [place] [facility] [place] [facility] PSYTX W PT 30 MINUTES [id number] Diagnos is: ICD-10- CM F41.9 Anxiety disorde r, unspeci fabian ELAINEISHA LOC R 02/15 [place] [facility] [place] [facility] [place] [facility] Outpatient Encounter [id number] 07/12 [facility] [place] [facility] Procedures Combined list of: 1) Procedures from Department of Veterans Affairs facilities going back up to thelast 18 months, not all [place] non-surgical procedures are included; 2) All procedures from the Department of Defense facilities. Procedure Procedure Type Code Date Perfomer Comments Sourc e No data available for this section [facility] PURE TONE AUDIOMETRY (THRESHOLD), AUTOMATED; AIR ONLY [facility] ADMINISTRATION OF PATIENT-FOCUSED HEALTH RISK ASSESSMENT INSTRUMENT (EG, HEALTH HAZARD APPRAISAL) WITH SCORING AND DOCUMENTATION, PER STANDARDIZED INSTRUMENT [facility] TYPHOID VACCINE, CAPSULAR POLYSACCHARIDE (VICPS), FOR INTRAMUSCULAR USE [facility] VARICELLA VIRUS VACCINE (REGINE), LIVE, FOR SUBCUTANEOUS USE [facility] INJECTION, PENICILLIN G BENZATHINE, 100,000 UNITS [facility] PURE TONE AUDIOMETRY (THRESHOLD), AUTOMATED; AIR ONLY [facility] VIS FUNCT SCREEN,AUTOMAT/SE CT-AUTOMAT BILAT QUANT DETERM VISUAL ACUITY,OCULAR ALIGN,COLOR VISION,PSEUDOISOC HROMAT PLATES,& FIELD VIS (MAY INC ALL/SOME SCRN DETERM FOR CONTRAST SENSITIV,VIS UND GLARE) 015 [facility] ADENOVIRUS VACCINE, TYPE 7, LIVE, FOR ORAL USE 014 [facility] EAR MOLD/INSERT, NOT DISPOSABLE, ANY TYPE 014 [facility] Preventive Medicine Administration Of Health Risk Questionnaire Patient-Focused Preventive Medicine Administration Of Health Risk Questionnaire Patient-Focused [id number] GRISELDA KUHN [facility] Threshold Audiogram (Pure Tone) Automated Threshold Audiogram (Pure Tone) Automated 0208T 018 CINDY CHACKO [facility] Anthrax Vaccine For Subcutaneous Or Intramuscular Use Anthrax Vaccine For Subcutaneous Or Intramuscular Use 63684 017 MYNOR DRAKE [facility] Typhoid Vaccine Vi Capsular Polysaccharide, For Intramus Use Typhoid Vaccine Vi Capsular Polysaccharide, For Intramus Use 63759 017 MYNOR DRAKE [facility] Vaccines Viral Varicella (Active) Vaccines Viral Varicella (Active) 73557 016 DUONG RODARTE [facility] Immunization Administration By Injection, One Vaccine Immunization Administration By Injection, One Vaccine 94368 016 DUONG RODARTE [facility] Injection, penicillin g benzathine, 100,000 units DORIAN KELLER Visit for an IM injection of 1.2 million/units per 2 mL of Bicillin L-A (Penicillin G Benxathine injectable suspension). Was given in the Left upper quadrant, left buttock. Patient was observed for 15 min with no adverse reactions. [facility] Physician Supervised Injection Intramuscular Antibiotic Physician Supervised Injection Intramuscular Antibiotic 72354 DORIAN KELLER [facility] Meningococcal Polysaccharide Diphtheria Toxoid Conjugate Vaccine DORIAN KELLER Visit for an IM injection of 0.5mL of Meningococcal Vaccine (Menactra). Was given in the Left Deltoid. Patient was observed for 15 min with no adverse reactions. [facility] Vaccines Viral Polio, Inactivated Vaccines Viral Polio, Inactivated 75835 DORIAN KELLER Visit for an IM injection of 0.5mL of IPOL (Poliovirus Vaccine Inactivated). Was given in the Right Deltoid. Patient was observed for 15 min with no adverse reactions. [facility] Hepatitis A Vaccine Adult Dosage (Intramuscular Use) Hepatitis A Vaccine Adult Dosage (Intramuscular Use) 67512 DORIAN KELLER Visit for an IM injection of 1mL of Hepatitis A (Havrix). Was given in the Right Deltoid. Patient was observed for 15 min with no adverse reactions. [facility] Vaccines Viral Varicella (Active) Vaccines Viral Varicella (Active) 48634 DORIAN KELLER Visit for a SQ injection of 0.5mL of Varicella. Was given in the Right Tricep. Patient was observed for 15 min with no adverse reactions. DoD Immunization Admin Intranasal / Oral Each Additional Vaccine Immunization Admin Intranasal / Oral Each Additional Vaccine 74102 DORIAN KELLER [facility] Vaccines Adenovirus Type 4 Live, For Oral Use Vaccines Adenovirus Type 4 Live, For Oral Use 27823 DORIAN KELLER A single vaccine dose adminstered orally. [facility] Vaccines Adenovirus Type 7 Live, For Oral Use Vaccines Adenovirus Type 7 Live, For Oral Use 60494 DORIAN KELLER A single vaccine dose adminstered orally. DoD Immunization Admin By Intranasal / Oral Route One Vaccine Immunization Admin By Intranasal / Oral Route One Vaccine 75645 DORIAN KELLER DoD Influenza Virus Vaccine Live Attenuated Intranasal Quadrivalent Influenza Virus Vaccine Live Attenuated Intranasal Quadrivalent 08827 DORIAN KELLER Flumist: Each sprayer contains a single dose of Flumist; approximately one-half of the contents was administered into each nostril. Patient was observed for 15 min with no adverse reactions. [facility] Immunization Administration By Injection, Each Additional Vaccine Immunization Administration By Injection, Each Additional Vaccine 89611 DORIAN KELLER [facility] Tdap Vaccine Tdap Vaccine 94858 DORIAN KELLER Visit for an IM injection of 0.5mL of Boostrix (Tetanus and Diphtheria Toxoids and Acellular Pertussis). Was given in the Right Deltoid. Patient was observed for 15 min with no adverse reactions. [facility] Threshold Audiogram (Pure Tone) Automated Threshold Audiogram (Pure Tone) Automated 0208T NAHUN MONSON [facility] Visual Function Screening Visual Function Screening 35441 RAI MCNEAL [facility] Vaccines Adenovirus Type 4 Live, For Oral Use Vaccines Adenovirus Type 4 Live, For Oral Use 75484 06/20/2 DORIAN KHALIL D A single vaccine dose adminstered orally. DoD Vaccines Adenovirus Type 7 Live, For Oral Use Vaccines Adenovirus Type 7 Live, For Oral Use 38402 DORIAN SANDY A single vaccine dose adminstered orally. DoD Immunization Admin Intranasal / Oral Each Additional Vaccine Immunization Admin Intranasal / Oral Each Additional Vaccine 73306 DORIAN SANDY Do[facility] Influenza Split Virus Vaccine 0.5mL Dosage Intramuscular DORIAN SANDY Flu vaccine: Administer 0.5mL injected in the left deltoid muscle intramuscularly . Patient was observed for 15 min with no adverse reactions Do[facility] Immunization Administration By Injection, One Vaccine Immunization Administration By Injection, One Vaccine 88019 DORIAN SANDY [facility] Physician Supervised Injection Intramuscular Antibiotic Physician Supervised Injection Intramuscular Antibiotic 42649 DORIAN SANDY [facility] Tdap Vaccine Tdap Vaccine 17174 DORIAN SANDY Visit for an IM injection of 0.5mL of Boostrix (Tetanus and Diphtheria Toxoids and Acellular Pertussis). Was given in the Right Deltoid. Patient was observed for 15 min with no adverse reactions. Do[facility] Immunization Administration By Injection, Each Additional Vaccine Immunization Administration By Injection, Each Additional Vaccine DORIAN SANDY [facility] Meningococcal Polysaccharide Diphtheria Toxoid Conjugate Vaccine DORIAN SANDY Visit for an IM injection of 0.5mL of Meningococcal Vaccine (Menactra). Was given in the Left Deltoid. Patient was observed for 15 min with no adverse reactions. [facility] Vacc[facility] Viral Polio, Inactivated Vaccines Viral Polio, Inactivated 50070 DORIAN SANDY Visit for an IM injection of 0.5mL of IPOL (Poliovirus Vaccine Inactivated). Was given in the Right Deltoid. Patient was observed for 15 min with no adverse reactions. [facility] Hepatitis A And Hepatitis B (Intramuscular Use) Adult Dosage Hepatitis A And Hepatitis B (Intramuscular Use) Adult Dosage 56523 DORIAN SANDY Visit for an IM injection of 1mL of Twinrix (Hepatitis A and B combination). Was given in the Right Deltoid. Patient was observed for 15 min with no adverse reactions. [facility] Vaccines Viral Varicella (Active) Vaccines Viral Varicella (Active) 94023 DORIAN SANDY Visit for a SQ injection of 0.5mL of Varicella. Was given in the Right Tricep. Patient was observed for 15 min with no adverse reactions. [facility] Injection, penicillin g benzathine, 100,000 units DORIAN SANDY Visit for an IM injection of 1.2 million/units per 2 mL of Bicillin L-A (Penicillin G Benxathine injectable suspension). Was given in the Left upper quadrant, left buttock. Patient was observed for 15 min with no adverse reactions. [facility] Ear mold/insert, not disposable, any type KATEY KING [facility] Physician Supervised Group Educational Services Physician Supervised Group Educational Services 46830 KATEY KING [facility] Audiometry Group Testing Audiometry Group Testing 77127 KATEY KING Social History Combined list of available smoking, tobacco, and other social history from Department of Defense and Veterans Affairs facilities. 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 Other Tobacco use: Never-other tobacco user (not cigarettes). Ambulatory Pharmacy Sexual Orientation Ambula tory Pharmacy Gender identity Ambulator y Pharmacy Sex Representation Male (finding) Un known Organization This section is an empty social history section. [facility] Assessment and Plan Combined list of future care activities from Department of Defense and Veterans Affairs facilities (e.g., assessment and plan notes, appointments, orders, and referrals). Additional future care activities may be listed in the Plan of Care section. Result Assessment and Plan Date Source Assessment and Plan No data available for this section 07/12/2025 Ambulatory Pharmacy Functional Status Combined list of recent functional and cognitive assessments recorded at Department of Defense and Veterans Affairs ([facility]).[facility] Functional [place] Measurement (FIM) Scale: 1 = Total Assistance (Subject = 0% +), 2 = Maximal Assistance (Subject = 25% +), 3 = Moderate Assistance (Subject = 50% +), 4 = Minimal Assistance (Subject = 75% +), 5 = Supervision, 6 = Modified [place] (Device), 7 = Complete [place] (Timely, Safely). Assessment Date/Time Source Assessment Type Assessment Skill Assessment Score Assessment Details No data available for this section
--- OUTSIDE RECORDS SUMMARY | 2025-07-12 17:49 | XMS_ITS | Encounter Summary ---
Author Organization [facility] Address [address] [place] [address] Phone Care Team Providers Care Residence Director Name Role Phone Mien Fish MD Primary Care Provider Encounter Details Date Type Department Care Team (Late st Contact Info) Description 03/09/2012 Documentation [facility] [place] [address] [place], [place] [phone] Family Medicine, Physician [address] [place] [address] Social History Tobacco Use Types Packs/Day Years Used Date Smoking Tobacco: Never Assessed Sex and Gender Information Value Date Recorded Sex Assigned at Not on file Legal Sex Male 4:51 PM EDT Gender Identity Not on file Sexual Orientation Not on file documented as of this encounter Plan of Treatment Not on file documented as of this encounter Visit Diagnoses Not on filedocumented in this encounter Care Teams Residence Director Relationship Specialty Start Date End Date Mine Fish MD [address] [place] [address] [place] [address] PCP - General 06/19/17 01/27/23 documented as of this encounter
--- OUTSIDE RECORDS SUMMARY | 2025-07-12 17:49 | XMS_ITS | Encounter Summary ---
Author Organization [facility] Address [address] [place] [address] Phone Care Team Providers Care Business Dean Name Role Phone Mine Fish MD Primary Care Provider Encounter Details Date Type Department Care Team (Late st Contact Info) Description 04/21/2012 Documentation [facility] [place] [place] Family Medicine [address] [place], [place] [phone] Family Medicine, Physician [address] [place] [address] Social History Tobacco Use Types Packs/Day Years [...] on filedocumented in this encounter Care Teams Business Dean Relationship Specialty Start Date End Date Mine Fish MD [address] [place] [address] [place] [address] PCP - General 06/19/17 01/27/23 documented as of this encounter
--- OUTSIDE RECORDS SUMMARY | 2025-07-12 17:49 | XMS_ITS | Encounter Summary ---
Author Organization [facility] Address [address] [place] [address] Phone Care Team Providers Care Rn Cvor Name Role Phone Mine Fish MD Primary Care Provider [phone] Encounter Details Date Type Department Care Team (Late st Contact Info) Description 03/12/2012 Documentation [facility] [place] Family Medicine [address] [place], [place] [phone] Family Medicine, Physician [address] [place] [address] Social History Tobacco Use Types Packs/Day Years [...] on filedocumented in this encounter Care Teams Rn Cvor Relationship Specialty Start Date End Date Mine Fish MD [address] [place] [address] [place] [address] PCP - General 06/19/17 01/27/23 documented as of this encounter
--- OUTSIDE RECORDS SUMMARY | 2025-07-12 17:49 | XMS_ITS | Encounter Summary ---
Author Organization [facility] Address [address] [place] [address] Phone Care Team Providers Care Sole Filler Name Role Phone Mine Fish MD Primary Care Provider Encounter Details Date Type Department Care Team (Late st Contact Info) Description 03/11/2012 [place] [facility] [place] [address] [place], [place] [phone] Family Medicine, Physician [address] [place] [address] Social History Tobacco Use Types Packs/Day Years [...] on filedocumented in this encounter Care Teams Sole Filler Relationship Specialty Start Date End Date Mine Fish MD [address] [place] [address] [place] [address] PCP - General 06/19/17 01/27/23 documented as of this encounter
--- OUTSIDE RECORDS SUMMARY | 2025-07-12 17:49 | XMS_ITS | Encounter Summary ---
Author Organization [facility] Address [address] [place] [address] Phone Care Team Providers Care Methods Examiner Name Role Phone Mine Fish MD Primary Care Provider [phone] Encounter Details Date Type Department Care Team (Late st Contact Info) Description 05/19/2012 Documentation [facility] [place] Family Medicine [address] [place], [place] [phone] Family Medicine, Physician [address] [place] [address] Social History Tobacco Use Types Packs/Day Years [...] on filedocumented in this encounter Care Teams Methods Examiner Relationship Specialty Start Date End Date Mine Fish MD [address] [place] [address] [place] [address] PCP - General 06/19/17 01/27/23 documented as of this encounter
--- OUTSIDE RECORDS SUMMARY | 2025-07-12 17:49 | XMS_ITS | Encounter Summary ---
Author Organization [facility] Address [address] [place] [address] Phone Care Team Providers Care Casting Repairer Name Role Phone Mine Fish MD Primary Care Provider Encounter Details Date Type Department Care Team (Late st Contact Info) Description 09/01/[address] [facility] [place] Family Medicine [address] [place], [place] [phone] Family Medicine, Physician [address] [place] [address] Social History Tobacco Use Types Packs/Day Years [...] on filedocumented in this encounter Care Teams Casting Repairer Relationship Specialty Start Date End Date Mine Fish MD [address] [place] [address] [place] [address] PCP - General 06/19/17 01/27/23 documented as of this encounter
--- OUTSIDE RECORDS SUMMARY | 2025-07-12 17:50 | XMS_ITS | Clinical Summary ---
Author Organization [facility] Address [address] [place] [address] Phone Care Team Providers Care Php Mysql Web Developer Name Role Phone Unavailable Primary Care Provider Unavailabl e Immunizations Immunization Administration Dates Next Due DTP 06/29/1996,04/27/1996,02/25/1996 DTaP 5 07/15/2000,06/06/1997 H1N1 10/16/2009 Hep B, ped/adol 06/29/1996,04/27/1996,02/01/1996 Hib (PRP-T) 01/02/1997,199 6,04/27/1996, 996 IPV 07/15/2000 Influenza Split 08/19/2013,201 2,09/30/2011, 010 Influenza, injectable, quadrivalent 10/19/2014 Influenza, injectable, trivalent 009,08/29/2008,09/24/2005, 004,09/25/1999,10/30/1998,08/29/1997 MMR 07/15/2000,01/02/1997 Meningococcal Conj (Menactra) MCV4P 02/15/2007 OPV 06/29/1996,04/27/1996,02/25/1996 Tdap 02/15/2007 Varicella 05/02/2008,10/30/1998 Family History Relation Name Status Comments Father Alive Father: Asthma Mother Alive Mother: Asthma Migraines Other No family histo ry of Developmental dislocation of hip, No family history of Autism, No family history of Seizure disorder, No family history of CVA (Stroke), Family history of Asthma migraines allergies elevated cholester, No family history of ADD/ADHD, Family history of Elevated cholesterol, No family history of Heart disease, No family history of Autism, No family history of Deafness, Family history of Obesity, No family history of Dental caries, No family history of Thrombophilia Social History Tobacco Use Types Packs/Day Years Used Date Smoking Tobacco: Never Comments:Never smoker Sex and Gender Information Value Date Recorded Sex Assigned at Not on file Legal Sex Male 4:51 PM EDT Gender Identity Not on file Sexual Orientation Not on file Last Filed Vital Signs Vital Sign Reading Time Taken Comments Blood Pressure 107/64 07/22/2016 12:00 AM EDT Pulse 63 07/22/2016 12:00 AM EDT Temperature 36.8 C (98.2 F) 03/10/2014 12:00 AM EDT Respiratory Rate - - Oxygen Saturation - - Inhaled Oxygen Concentration - - Weight 49 kg (108 lb) 07/22/2016 12:00 AM EDT Height 158.8 cm (5' 2.5 ) 07/22/2016 12:00 AM ED T Body Mass Index 19.44 07/22/2016 12:00 AM EDT Plan of Treatment Health Maintenance Due Date Last Done Comments DTaP,Tdap,and Td Vaccines (7 - Td or Tdap) 02/15/2017 02/15/2007, 07/15/2000, 06/06/1997, Additional history exists HPV Vaccines (1 - 3-dose SCDM series) 2022 COVID-19 Vaccine ( season) 2024 Influenza Vaccines (#1) 2025 10/19/20 14, 08/19/2013, 08/26/2012, Additional history exists Hepatitis B Vaccines Completed 06/29/1996, 04/27/1996, 02/01/1996 HIB Vaccines Completed 01/02/1997, 06/10, 04/27/1996, Additional history exists IPV Vaccines Completed 07/15/2000, 06/10, 04/27/1996, Additional history exists MMR Vaccines Completed 07/15/2000, 01/02/1997 Meningococcal Vaccine Aged Out 02/15/2007 No rod matt eligible based on patient's age to complete this topic Varicella Vaccines Completed 05/02/2008, 10/30/1998 Hepatitis A Vaccines Aged Out No long er eligible based on patient's age to complete this topic Men B Vaccine Aged Out No longer elig ible based on patient's age to complete this topic Pneumococcal Vaccine Aged Out No long er eligible based on patient's age to complete this topic
--- OUTSIDE RECORDS SUMMARY | 2025-07-12 17:50 | XMS_ITS | Encounter Summary ---
Author Organization [facility] Address [address] [place] [phone] Phone Care Team Providers Care Oil Field Rig Builder Name Role Phone Mine Fish MD Primary Care Provider Encounter Details Date Type Department Care Team (Late st Contact Info) Description 06/25/2017 Conversion Encounter [facility] [address] [place] [address] Social History Tobacco Use Types Packs/Day Years [...] on filedocumented in this encounter Care Teams Oil Field Rig Builder Relationship Specialty Start Date End Date Mine Fish MD [address] [place] [address] PCP - General 06/19/17 01/27/23 documented as of this encounter
== END 2025-07-12 16:53 | disposition home or self-care (01) ==
PROVIDERS: Visit Provider Physician Assistant
DX: L30.1 Dyshidrosis [pompholyx] (principal)

== ENCOUNTER → 2025-07-12 16:04 | Outpatient (BNVA) | payer OTHER, SELFPAY | PROVIDERS: Visit Provider Physician Assistant | DX: L30.1 Dyshidrosis [pompholyx] (principal) | CPT/HCPCS: 99202 ==

== ENCOUNTER 2025-07-15 11:15 | Emergency (ER) | payer OTHER, SELFPAY ==
[2025-07-15 11:22] VITALS: BP 171/83; PULSE 82; RESP 18; TEMP 36.9; O2SAT 97; BMI 23.8
--- NOTE | 2025-07-15 11:24 | ED_ITS ---
HPI - General Adult General Chief complaint: Skin/Abscess/Foreign Body Stated complaint: Bumps all over body, itching Time Seen by Provider: 07/15/25 11:39 Source: patient and family (patient's (via telephone)) Mode of arrival: ambulatory Limitations: no limitations History of Present Illness ED Provider: Beba Tavera PA-C HPI narrative: Patient is a 29 year old assigned male at with a history of seasonal allergies, cold sores, and childhood asthma presenting to the emergency department today with a rash on his arms, hands, trunk, lips, groin, genitals, and feet. Patient states that red bumps first appeared 3 days ago and it is itchy and painful. He states that some of the bumps appear to be blister-like and popped, leaking fluid. Patient reports a history of a similar rash in 07/2024 while he was in [place]. He reports that he was prescribed prednsione which did not help and it took over 1 month for the rash to fully resolve. Patient was evaluated by an urgent care 3 days ago and his PCP at [facility] yesterday. He was prescribed prednisone, loratadine, and topical triamcinolone by urgent care without relief. He reports that his PCP believed the rash to be molluscum contagiosum and advised him to discontinue prednsione. Patient reports a recent URI a few weeks ago, but states his symptoms have resolved. He denies any headache, dizziness, neurological deficits, vision changes, chest pain, difficulty breathing, abdominal pain, nausea, vomiting, or any other symptoms. Patient reports no contacts with a similar rash. Onset (ago): day(s) (3) Related Data Previous Rx's ?Medication ?Instructions ?Recorded prednisone 10 mg tablet 10 mg PO DIRECTED #30 tab s 07/12/25 triamcinolone acetonide 0.5 % 1 appl topical BID #15 g isis 07/12/25 topical cream acyclovir 400 mg tablet 400 mg PO 5XD 7 days #35 tab s 07/15/25 doxycycline hyclate 100 mg tablet 100 mg PO BID 7 days #14 tabs 07/15/25 loratadine 10 mg tablet 10 mg PO DAILY #14 tabs 05/03 naproxen 500 mg tablet 500 mg PO BID 7 days #14 tab s 07/15/25 omeprazole 20 mg capsule,delayed 20 mg PO DAILY #14 ca ps 07/15/25 release prednisone 20 mg tablet See Rx Instructions .Route 0 07/15/25 .COMPLEX 9 days #18 tabs Allergies Allergy/AdvReac Type Severity Reaction Status Date / Time No Known Allergies Allergy Verified 07/15/25 11:23 Review of Systems 2 Constitutional: Constitutional: Reports as per HPI Eyes: Eyes: Reports as per HPI ENT: Reports as per HPI Cardiovascular: Cardiovascular: Reports as per HPI Respiratory: Respiratory: Reports as per HPI Gastrointestinal: Gastrointestinal: Reports as per HPI Genitourinary: Genitourinary: Reports as per HPI Musculoskeletal: Musculoskeletal: Reports as per HPI Integumentary/Breasts: Skin/Breast: Reports as per HPI Neurologic: Reports as per HPI Psychiatric: Psychiatric: Reports as per HPI Endocrine: Endocrine: Reports as per HPI Hematologic/Lymphatic: Hematologic/Lymphatic: Reports as per HPI Allergic/Immunologic: Allergic/Immunologic: Reports as per HPI [facility] Past Medical History Attestation statement: The following information was validated with the patient. (all information validated with the patient's via telephone) Source: old records reviewed, obtained from family (patient's provided additional history and confirmed the history provided by the patient via telephone) and nursing notes reviewed Social History Social History Advance Directives: No Advance Directives Information Provided: Yes Physical Exam ED Vital Signs: Vital Signs - 24 hr 07/15/25 11:22 07/15/25 12:24 07/15/25 12:33 Temperature 98.4 F 98.3 F 98.3 F Pulse Rate 82 70 70 Respiratory Rate 18 20 20 Blood Pressure 171/83 H 137/83 137/83 Pulse Oximetry 97 95 95 Oxygen Delivery Method Room Air Room Air Room Air BMI result Body Mass Index 23.8 Const General: cooperative, no acute distress, alert and awake Nutritional Appearance: well nourished Orientation/consciousness: patient oriented x3 HENMT Head: Yes normal to inspection and Yes atraumatic Ears: hearing grossly normal bilaterally and external ears normal General nose exam: Normal external nose present, no nasal discharge noted and no epistaxis Face and sinus: Yes normal facial exam, No abrasion and No laceration Mouth: Normal oral and palatal mucosa present, no drooling and no muffled voice Eyes General: appearance normal, both eyes and all related structures Periorbital: periorbital findings normal Eyelids: Yes eyelids normal Conjunctivae: conjunctivae normal Pupils: Equal, round and reactive pupils present EOM: EOMs intact bilaterally Neck Neck: Yes normal visual inspection and Yes full ROM Resp Effort & Inspection: normal respiratory effort and able to speak in complete sentences Neuro General: patient oriented x3, moves all extremities and CN's II-XI intact bilaterally Cranial nerves: Yes Equal, round and reactive pupils present Cognition (Neuro): normal cognition Extrem Other: General: Yes full ROM and Yes capillary refill normal Psych Appearance: grossly normal Mental Status: mental status grossly normal Affect: normal affect Attitude: cooperative Thought process: Normal thought process present Thought content: Normal thought content present Insight: Good insight present (Psych) Course Course Course Narrative: This is a Rapid Medical Examination (RME) performed by Melyssa Diallo PA-C in triage. Full HPI, ROS, assessment and treatment plan per primary provider in the Main ED. Hx: 29 yo M here w/ itchy, burning rash to extremities, palms, and torso x 07/12/25 after returning home from [place]. his son at home has a rash as well - was told it was molluscum. he has been seen for this 3 time in the past week w/ multiple diagnoses (dyshydrotic excema, molluscum, scabies) - he wants a 4th opinion. has been on multiple treatments. he states he is going to get kicked out of the [employer]. Plan: further eval Medications Administered Discontinued Medications Generic Name Dose Route Start Last Admin Trade Name Alie PRN Reason Stop Dose Admin Ketorolac Tromethamine 15 mg 07/15/25 12:12 07/15/25 12:16 Ketorolac Tromethamine 15 Mg/Ml Vial IM 07/15/25 12:13 15 mg ONCE ONE Administration Medical Decision Making Medical Decision Making MDM Narrative: Patient is a 29 year old assigned male at with a history of seasonal allergies, cold sores, and childhood asthma presenting to the emergency department today with a rash on his arms, hands, trunk, lips, groin, genitals, and feet. Patient's physical exam was as noted in the physical exam portion of this note. Patient's rash was wide spread with various stages of open vs. crusted. Given the patient's history - I am suspicious this is eczema however, it could be eczema herpeticum vs. dyshidrotic eczema. Given patient's history of cold sore and the dissemination of the rash - I am more suspicious it is herpeticum. I explained my physical exam findings to the patient and the patient's . I answered all questions asked by the patient and the patient's . I had an extensive conversation with this patient and his about my suspicions of his diagnosis and together, through shared decision making, we decided on a multi-pronged approach of treatment for the rash including a different dose prednisone burst and taper, a different dose of loratidine, doxycycline, and acyclovir. Additionally, patient was given IM Toradol for the pain associated and prescribed naproxen for him. Given these medications can cause GI upset, patient prescribed omeprazole. Ultimately, the patient will be need to follow up with a medical dir for a more definitive diagnosis of this rash. I did recommend the patient avoid any contact with anyone while having open lesions and to keep these lesions covered until they are crusted over. I stressed the importance of the patient taking his medication as directed (either prescribed or as the over the counter packaging recommends). I stressed the importance of the patient following up with his primary care provider and a medical dir. I stressed the importance of the patient returning to the emergency department immediately if his symptoms were to worsen or if he were to develop any dizziness, shortness of breath, difficulty breathing, chest pain, blurry vision, loss of vision, nausea, vomiting, abdominal pain, fever, chills, back pain, or any other complaints. Patient verbalized agreement and understanding with this treatment plan and discharge. Differential Diagnosis Differential Diagnoses: The differential diagnosis associated with the presentation includes Eczema Eczema herpeticum Dyshidrotic eczema Admission/Observation Consideration of admission/observation: Escalation of care including admission/observation considered Patient would have been admitted to the hospital had his clinical presentation warranted hospital admission. Independent Historian Clinical information obtained from an independent historian. History obtained from or confirmed by: Spouse (patient's provided additional history and confirmed the history provided by the patient. ) Prescription Management I considered prescription management with: Antiviral (patient prescribed an antiviral for possible eczema herpeticum) and Antibiotic (patient prescribed doxycycline to cover for super imposed infection) Discharge Plan Discharge Clinical Impression: Eczema Patient Disposition: Home, Self-Care Instructions: Dyshidrotic Eczema (ED) Additional Instructions: Your rash is most consistent with Eczema however, it is either a dyshidrotic or herpeticum subtype. You should keep the lesions covered until they resolve. Take your medication as prescribed. Avoid prolonged sunlight exposure while on the antibiotic (Doxycycline) - if you are in sunlight for prolonged periods of time, PLEASE apply a generous amount of sunscreen. It is crucial you see a medical dir about this. IF you are prescribed home medications and/or you are taking over the counter medications at home - it is very important you continue to do so as prescribed / directed unless told otherwise. Follow up with your primary care provider. Return to the emergency department immediately if your symptoms worsen or if you develop any numbness, tingling, dizziness, shortness of breath, difficulty breathing, chest pain, blurry vision, loss of vision, nausea, vomiting, abdominal pain, fever, chills, back pain, or any other complaints. Please see the information below about our Patient Portal. If you are not yet enrolled in the [facility] Patient Portal, you will receive an enrollment email invitation following your visit to any [facility] setting. You may also self-enroll in the Patient Portal by visiting our website: [email or web address] The following information is required to access the Patient Portal: - Your [facility] Medical Record Number - Your personal home email address (must match what is in your electronic medical record, Registration staff can assist with this) - Name - Date of Capabilities of the Patient Portal: - Message some providers - View upcoming appointments - Access your health summary, medical history, and visit history - View current conditions and allergies - View procedure and lab results - View your medications, including guidelines, side effects, and precautions - Complete pre-appointment questionnaires requested by your provider - Ready summary reports of your office visits and procedures To access the Patient Portal Mobile Mario, follow these directions: - Search [employer] in the Mario Store or Google Play Store - Download the Mario - Search for [facility] - Enter your login/password Prescriptions: New prednisone 20 mg tablet See Rx Instructions .ROUTE .COMPLEX 9 Days Qty: 18 0RF Rx Instructions: 20 mg orally, Take 3 tablets for 3 days THEN; Take 2 tablets for 3 days THEN; Take 1 tablet for 3 days doxycycline hyclate 100 mg tablet 100 mg PO BID 7 Days Qty: 14 0RF naproxen 500 mg tablet 500 mg PO BID 7 Days Qty: 14 0RF loratadine 10 mg tablet 10 mg PO DAILY Qty: 14 0RF omeprazole 20 mg capsule,delayed release(DR/EC) 20 mg PO DAILY Qty: 14 0RF Rx Instructions: Take this 1 hour after taking all of your other medications in the morning acyclovir 400 mg tablet 400 mg PO 5XD 7 Days Qty: 35 0RF No Action prednisone 10 mg tablet 10 mg PO DIRECTED Qty: 30 0RF Rx Instructions: see taper instructions; 40 mg Daily x3 days, 30 mg daily x3 days, 20 mg daily x3 days, 10 mg daily x3 days triamcinolone acetonide 0.5 % cream 1 appl topical BID Qty: 15 0RF Rx Instructions: do not exceed use greater than 14 days Referrals: [facility] [Provider Group] Referral Note: Call to establish and follow up with a medical dir. [facility] [Provider Group] Referral Note: Call to establish and follow up with a medical dir. Reji Singleton NP [Primary Care Provider, Internal Medicine] Stand Alone Forms: Work/School Release Interventions: ED Discharge Assessment Last Done: 07/15/25 12:33 Discharge Date/Time: 07/15/25 12:35 Print Language: Kazakh
--- OUTSIDE RECORDS SUMMARY | 2025-07-15 11:39 | XMS_ITS | Encounter Summary ---
Author Organization [facility] Address [address] [place] [address] Phone Care Team Providers Care Tools Administrator Name Role Phone Mine Fish MD Primary Care Provider Encounter Details Date Type Department Care Team (Late st Contact Info) Description 04/21/2012 Documentation [facility] [place] Family Medicine [address] [place], [place] [phone] Family Medicine, Physician [address] [place] [address] Social History Tobacco Use Types Packs/Day Years [...] on filedocumented in this encounter Care Teams Tools Administrator Relationship Specialty Start Date End Date Mine Fish MD [address] [place] [address] [place] [address] PCP - General 06/19/17 01/27/23 documented as of this encounter
--- OUTSIDE RECORDS SUMMARY | 2025-07-15 11:39 | XMS_ITS | Encounter Summary ---
Author Organization [facility] Address [address] [place] [address] Phone Care Team Providers Care Hand Inserter Operator Name Role Phone Mine Fish MD Primary Care Provider [phone] Encounter Details Date Type Department Care Team (Late st Contact Info) Description 09/01/2011 Documentation [facility] Family Medicine [address] [place], [place] [phone] Family Medicine, Physician [address] [place] [address] Social History Tobacco Use Types Packs/Day Years [...] on filedocumented in this encounter Care Teams Hand Inserter Operator Relationship Specialty Start Date End Date Mine Fish MD [address] [place] [address] [place] [address] PCP - General 06/19/17 01/27/23 documented as of this encounter
--- OUTSIDE RECORDS SUMMARY | 2025-07-15 11:39 | XMS_ITS | Encounter Summary ---
Author Organization [facility] Address [address] [place] [address] Phone Care Team Providers Care Junior Linux Administrator Name Role Phone Mine Fish MD Primary Care Provider Encounter Details Date Type Department Care Team (Late st Contact Info) Description 03/11/2012 Documentation [facility] Family Medicine [address] [place], [place] [phone] Family Medicine, Physician [address] [place] [address] Social History Tobacco Use Types Packs/Day Years [...] on filedocumented in this encounter Care Teams Junior Linux Administrator Relationship Specialty Start Date End Date Mine Fish MD [address] [place] [address] [place] [address] PCP - General 06/19/17 01/27/23 documented as of this encounter
--- OUTSIDE RECORDS SUMMARY | 2025-07-15 11:39 | XMS_ITS | Encounter Summary ---
Author Organization [facility] Address [address] [place] [phone] Phone Care Team Providers Care Consulting Senior Practice Director Name Role Phone Mine Fish MD Primary Care Provider Encounter Details Date Type Department Care Team (Late st Contact Info) Description 05/19/2012 Documentation [facility] [place] [address] [place], [place] [phone] Family Medicine, Physician [address] [place] [address] Social History Tobacco Use Types Packs/Day Years [...] on filedocumented in this encounter Care Teams Consulting Senior Practice Director Relationship Specialty Start Date End Date Mine Fish MD [address] [place] [address] [place] [address] PCP - General 06/19/17 01/27/23 documented as of this encounter
--- OUTSIDE RECORDS SUMMARY | 2025-07-15 11:39 | XMS_ITS | Encounter Summary ---
Author Organization [facility] Address [address] [place] [address] Phone Care Team Providers Care Traffic Control Operator Name Role Phone Mine Fish MD Primary Care Provider [phone] Encounter Details Date Type Department Care Team (Late st Contact Info) Description 03/09/2012 Documentation [facility] [place] Family Medicine [address] [place], [place] [phone] Family Medicine, Physician [address] [place] [address] Social History Tobacco Use Types Packs/Day Years [...] on filedocumented in this encounter Care Teams Traffic Control Operator Relationship Specialty Start Date End Date Mine Fish MD [address] [place] [address] [place] [address] PCP - General 06/19/17 01/27/23 documented as of this encounter
--- OUTSIDE RECORDS SUMMARY | 2025-07-15 11:39 | XMS_ITS | Encounter Summary ---
Author Organization [facility] Address [address] [place] [phone] Phone Care Team Providers Care Metal Moulder Name Role Phone Mine Fish MD Primary Care Provider Encounter Details Date Type Department Care Team (Late st Contact Info) Description 03/12/2012 Documentation [facility] [place] Family Medicine [address] [place], [place] [phone] Family Medicine, Physician [address] [place] [address] Social History Tobacco Use Types Packs/Day Years [...] on filedocumented in this encounter Care Teams Metal Moulder Relationship Specialty Start Date End Date Mine Fish MD [address] [place] [address] [place] [address] PCP - General 06/19/17 01/27/23 documented as of this encounter
--- OUTSIDE RECORDS SUMMARY | 2025-07-15 11:39 | XMS_ITS | Clinical Summary ---
Author Organization [facility] Address [address] [place] [address] Phone Care Team Providers Care Nut Processing Supervisor Name Role Phone Unavailable Primary Care Provider [...] Vaccines (1 - 3-dose SCDM series) 2022 Influenza Vaccines (#1) 2025 10/19/20 14, 08/19/2013, 08/26/2012, Additional history exists COVID-19 Vaccine (2023- season) 2025 Hepatitis B Vaccines Completed 06/29/1996, 04/27/1996, 02/01/1996 [...]
--- OUTSIDE RECORDS SUMMARY | 2025-07-15 11:39 | XMS_ITS | Encounter Summary ---
Author Organization [facility] Address [address] [place] [phone] Phone Care Team Providers Care Bulb Planter Name Role Phone Mine Fish MD Primary Care Provider Encounter Details Date Type Department Care Team (Late st Contact Info) Description 06/25/2017 Conversion Encounter [facility] [address] [place] [address] Social History Tobacco Use Types Packs/Day Years [...] on filedocumented in this encounter Care Teams Bulb Planter Relationship Specialty Start Date End Date Mine Fish MD [address] [place] [address] PCP - General 06/19/17 01/27/23 documented as of this encounter
[2025-07-15 12:24] VITALS: BP 137/83; PULSE 70; RESP 20; TEMP 36.8; O2SAT 95
[2025-07-15 12:33] VITALS: BP 137/83; PULSE 70; RESP 20; TEMP 36.8; O2SAT 95
--- NOTE | 2025-07-15 12:33 | PC.NURSE ---
PA at bedside with this RN to go over extensive discharge instructions and medication instructions. Pt and pt in agreement with plan at this time. DC in
== END 2025-07-15 12:35 | disposition home or self-care (01) ==
PROVIDERS: Emergency Provider Emergency Medicine; PCP Nurse Practitioner Family
DX: L30.9 Dermatitis, unspecified (principal); J45.909 Unspecified asthma, uncomplicated; R21 Rash and other nonspecific skin eruption
CPT/HCPCS: 96372; 99284; J1885